=== PATIENT | female | born 1930 | race American Indian/Alaskan Native ===

== ENCOUNTER 2016-09-19 22:43 | Emergency (ER) | payer MEDICARE ==
[2016-09-19] MEDS ORDERED: APRESOLINE IV ONE (23:39)
[2016-09-20 00:31] VITALS: BP 143/59
--- NOTE | 2016-09-20 00:33 | Emergency Department Report ---
HPI - General Chief Complaint: High BP Time Seen by Provider: 09/19/16 23:38 - HPI HPI: The patient is a 86-year-old female with a history of hypertension, who presents for evaluation of the blood pressure. The patient reports rate blood pressure for the past 2-3 days, waxing and waning, severely elevated and constant for the past one day, as high as 250/100, earlier today. The patient admits to mild shortness of breath, although at baseline for her. The patient denies fever, headache, neck pain, chest pain, parasthesias, hemoptysis, palpitations, dizziness, syncope, unilateral leg swelling, calf muscle pain, abdominal pain, decreased urination. ED Past Medical Hx - Past Medical History Previous Medical History?: Yes Hx Hypertension: Yes Hx Heart Attack/AMI: Yes (2001) Hx Diabetes: Yes (BORDERLINE) Additional medical history: PAD. "hypoxemia" on 2 L nasal cannula constantly - Surgical History Past Surgical History?: Yes Hx Coronary Stent: Yes Additional Surgical History: L KIDNEY HAS A STAPLE IN IT, L GROIN STENT, R KIDNEY REMOVED, CARPEL TUNNEL SURGERY. - Social History Smoking Status: Never Smoker Substance Use Type: None - Medications Home Medications: Home Medications Medication Instructions Recorded Confirmed Last Taken Type Clopidogrel Bisulfate [Plavix] 75 mg PO DAILY 09/06/14 09/19/16 Unknown History Diltiazem [Cardizem] 240 mg PO DAILY 09/06/14 09/19/16 Unknown History Pentoxifylline 400 mg PO BID 09/19/16 09/19/16 Unknown History Hydrochlorothiazide [HCTZ] 25 mg PO BID #30 tablet 09/20/16 Unknown Rx ED Review of Systems ROS: Stated complaint: HBP Other details as noted in HPI Constitutional: denies: fever ENT: denies: throat or neck pain Respiratory: denies: cough, shortness of breath Cardiovascular: denies: chest pain Endocrine: denies unexplained weight loss or gain Gastrointestinal: denies: abdominal pain, nausea Genitourinary: denies: dysuria Musculoskeletal: denies: leg swelling Skin: denies: rash Neurological: denies: headache Hematological/Lymphatic: denies: easy bleeding or easy bruising Psych: denies sadness or hopelessness Physical Exam - Physical Exam Vital Signs: Vital Signs 09/19/16 09/19/16 09/20/16 22:56 23:59 00:04 Temperature 97.9 F Pulse Rate 72 70 70 Respiratory 20 16 Rate Blood Pressure 226/89 224/116 Blood Pressure 224/116 [Left] O2 Sat by Pulse 99 95 Oximetry 09/20/16 00:11 Temperature Pulse Rate 74 Respiratory 16 Rate Blood Pressure Blood Pressure 177/65 [Left] O2 Sat by Pulse 100 Oximetry Physical Exam: General: well-nourished, well-developed, no acute distress Head: Normocephalic, atraumatic Eyes: normal sclera ENT: Mucous membranes are pink and moist Neck: trachea midline, neck supple, No neck stiffness, no cervical adenopathy Respiratory: Breath sounds mildly diminished bilaterally, no wheezing, rales, or rhonchi Cardio: S1 and S2 present, no murmurs, rubs, gallops, capillary refill is brisk Abdomen: Normoactive bowel sounds, soft abdomen, no rigidity, no guarding or rebound tenderness Musc: No pitting edema Skin: No rash Neuro: no facial drooping, normal speech Psych: Normal affect ED Course Vital Signs 09/19/16 09/19/16 09/20/16 22:56 23:59 00:04 Temperature 97.9 F Pulse Rate 72 70 70 Respiratory 20 16 Rate Blood Pressure 226/89 224/116 Blood Pressure 224/116 [Left] O2 Sat by Pulse 99 95 Oximetry 09/20/16 00:11 Temperature Pulse Rate 74 Respiratory 16 Rate Blood Pressure Blood Pressure 177/65 [Left] O2 Sat by Pulse 100 Oximetry ED Medical Decision Making - Medical Decision Making The patient was seen and examined by myself. The patient is placed on a telecommunications network planner and continuous pulse ox. On initial evaluation, the patient was found to be in no distress. Evaluation orders were placed. The patient is given IV hydralazine for her significant only elevated blood pressure. EKG is negative for ST segment changes suggestive of acute ischemia or infarct. On reexamination the patient's blood pressure was found to decrease outside of range concerning for hypertensive emergency, now 143/59. The patient is stable for discharge with outpatient follow-up. The patient is given follow-up and return instructions. The patient expressed understanding and agreed with the plan. The patient is discharged in stable condition. Critical care attestation.: If time is entered above; I have spent that time in minutes in the direct care of this critically ill patient, excluding procedure time. ED Disposition Clinical Impression: Asymptomatic hypertensive urgency Disposition: DISCHARGED TO HOME OR SELFCARE Is pt being admited?: No Does the pt Need Aspirin: No Condition: Stable Instructions: Chronic Hypertension (ED), Hypertension (ED) Prescriptions: Hydrochlorothiazide [HCTZ] 25 mg PO BID #30 tablet Referrals: WILLIAN ORTIZ [Other] - 3-5 Days Time of Disposition: 00:26
== END 2016-09-20 00:51 | disposition home or self-care (01) ==
LOC: ED 22:43
DX: I10 Essential (primary) hypertension (principal); I25.2 Old myocardial infarction
CPT/HCPCS: 93005; 93010; 96374; 99284; J0360